=== PATIENT | male | born 1935 | race Caucasian/White ===

== ENCOUNTER 2017-10-07 05:50 | Emergency (ER) | payer OTHER, MEDICARE ==
[~2017-10-07 05:50] MED LIST: CALCIUM CARBON400 MG PO; COSOPT EYE DROP10 ML OPH; COUMADIN2.5 M1 PO; INDAPAMIDE1.25 M1 PO; LISINOPRIL20 M1 PO; METOPROLOL SUCC50 M2 PO; TRAVATAN Z5 ML OPH; VITAMIN B-12500 MC2 PO; VITAMIN C500 M8 PO; VITAMIN D1000 UNIT PO; WARFARIN SODIUM5 M1 PO; ZITHROMAX500 M2 PO; ZOCOR10 M1 PO
--- NOTE | 2017-10-07 06:06 | ED UPPER/LOWER EXTREMITY COMPL ---
History of Present Illness General Chief Complaint: Hand or Wrist Injury Stated Complaint: RIGHT WRIST/ HAND PAIN Source: patient Exam Limitations: no limitations Vital Signs & Intake/Output Vital Signs & Intake/Output Vital Signs Date Time Temp Pulse Resp B/P B/P Pulse O2 O2 Flow FiO2 Mean Ox Delivery Rate 10/07 0616 67 18 170/110 99 Room Air . Allergies Coded Allergies: No Known Allergies (10/07/17) Reconcile Medications Ascorbic Acid (Vitamin C) 500 MG TABLET 1 TAB PO QPM SUPPLEMENT (Reported) Azithromycin (Zithromax) 500 MG TABLET 0 PO DAILY bronchtiis USE DIRECTED Calcium Carbonate 400 MG TAB.CHEW 1 TAB PO 3XW SUPPLEMENT (Reported) Cholecalciferol (Vitamin D3) (Vitamin D) 1,000 UNIT TABLET 1 TAB PO Saturday SUPPLEMENT (Reported) Colchicine 0.6 MG TABLET 1-2 TAB PO TID PRN gout Cyanocobalamin (Vitamin B-12) (Vitamin B-12) 500 MCG TABLET 1 TAB PO QAM SUPPLEMENT (Reported) Dorzolamide HCl/Timolol Maleat (Cosopt Eye Drops) 10 ML DROPS 1 GTT OPH BID BOTH EYES (Reported) Indapamide 1.25 MG TABLET 1 TAB PO QAM BP (Reported) Lisinopril 20 MG TABLET 1 TAB PO QAM BP (Reported) Metoprolol Succinate 50 MG TAB.ER.24H 1 TAB PO QPM HEART/BP (Reported) Oxycodone HCl/Acetaminophen (Percocet 5-325 MG Tablet) 5 MG-325 MG TABLET 1 TAB PO 4XDP PRN PAIN TEN...[id number] Prednisolone 15 MG/5 ML SOLUTION 10 ML PO QDAY gout Simvastatin (Zocor*) 10 MG TABLET 1 TAB PO QAM CHOLESTEROL (Reported) Travoprost (Travatan Z) 5 ML DROPS 1 GTT OPH QPM BOTH EYES (Reported) Warfarin Sodium 5 MG TABLET 1 TAB PO AD BLOOD THINNER (Reported) Warfarin Sodium (Coumadin) 2.5 MG TABLET 1 TAB PO AD BLOOD THINNER (Reported) Triage Nurses Notes Reviewed? yes Onset: Gradual Duration: day(s): Timing: recent history Severity: moderate Pain/Injury Location: Right: Wrist. Method of Injury: unknown Modifying Factors: Improves With: rest. Worsens With: movement. Associated Symptoms: right wrist swelling and pain HPI: 82 yo gentleman on eliquis for afib h/o gout presents with right wrist pain x 3 days. He notes mild warmth, pain with movement, and mild swelling. He has no fever, chills, nausea, vomiting diarrhea. He notes that his prior episodes of gout have happened in his knees and feet. "It feels like it could be gout." He has no fever, chills, nauea, vomiting, diarrhea, chest pain. He is otherwise well. Past History Travel History Traveled to [place] past 21 day No Medical History Any Pertinent Medical History? 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 No Review of Systems Review of Systems Constitutional: Reports: no symptoms. EENTM: Reports: no symptoms. Respiratory: Reports: no symptoms. Cardiovascular: Reports: no symptoms. Gastrointestinal/Abdominal: Reports: no symptoms. Genitourinary: Reports: no symptoms. Musculoskeletal: Reports: no symptoms. Skin: Reports: no symptoms. Neurological/Psychological: Reports: no symptoms. Hematologic/Endocrine: Reports: no symptoms. Immunological: Reports: no symptoms. All Other Systems: Reviewed and Negative Physical Exam Physical Exam General Appearance: well developed/nourished, mild distress Head: atraumatic Eyes: Bilateral: normal appearance. Ears, Nose, Throat: normal ENT inspection Neck: normal inspection Cardiovascular/Respiratory: no respiratory distress Gastrointestinal: organmegaly Back: normal inspection Hand Right: right wrist with diffuse mild warmth, mild diffuse swelling, no focal bony tenderness. ROM is normal but compromised by discomfort, 2+distal pulses. Progress Differential Diagnosis: fracture, gout, sprain Plan of Care: Current Medications Sig/Jitendra Start time Last Medication Dose Stop Time Status Admin Colchicine 1,200 MCG ONCE ONE 10/07 614 UNVr (Colchicine 600MCG 10/08 615 Tab) Oxycodone/ 1 TAB ONCE ONE 10/07 614 UNVr Acetaminophen 10/08 615 (Percocet) Prednisone 40 MG ONCE ONE 10/07 614 UNVr 10/08 615 Departure Departure Disposition: HOME OR SELF CARE Condition: Stable Clinical Impression Primary Impression: Gout attack Referrals: Bladimir CRANDALL,Luis Sands (PCP/Family) Departure Forms: Customer Survey General Discharge Information Prescriptions: Current Visit Scripts Prednisolone 10 ML PO QDAY #40 ML Oxycodone HCl/Acetaminophen (Percocet 5-325 MG Tablet) 1 TAB PO 4XDP PRN PAIN #10 TAB TEN...[id number] Colchicine 1-2 TAB PO TID PRN gout #60 TAB Ref 1 Comments exam is most consistent with gout. unable to give nsaids due to patinet's eliquis. will give steroids, percocet, colchicine. close follow up advised.
[2017-10-07] MEDS ORDERED: COLCHICINE0.6 M2 PO (06:11)
[2017-10-07] MEDS ORDERED: PREDNISOLO15 MG/5 M4 PO (06:11)
[2017-10-07] MEDS ORDERED: PERCOCET 5-3251 EACH PO (06:11)
[2017-10-07 06:16] VITALS: BP 170/110
== END 2017-10-07 07:00 ==
LOC: ERH 05:50
DX: M10.9 Gout, unspecified (principal)